=== PATIENT | male | born 1990 | race Caucasian/White ===

== ENCOUNTER 2021-10-29 13:11 | Emergency (ER) | payer OTHER ==
[~2021-10-29] VITALS: Ht 172.7 cm; Wt 77.3 kg
[2021-10-29 13:12] VITALS: BP 120/78
[2021-10-29 14:05] LABS: RSV AMPLIFICATION NEGATIVE (NEGATIVE)
[2021-10-29] MEDS ORDERED: ONDA4TAB6 PO (14:32)
== END 2021-10-29 14:45 | disposition home or self-care (01) ==
LOC: M ED 13:11
DX: U07.1 COVID-19 (principal); R50.9 Fever, unspecified; R06.02 Shortness of breath; R07.9 Chest pain, unspecified; F17.200 Nicotine dependence, unspecified, uncomplicated

== ENCOUNTER 2023-08-29 09:20 | Emergency (ER) | payer OTHER ==
[~2023-08-29] VITALS: Ht 172.7 cm; Wt 79.8 kg
[~2023-08-29 09:20] MED LIST: ONDA4TAB6 PO
[2023-08-29] MEDS ORDERED: TRAZ-252 (09:30)
[2023-08-29] MEDS ORDERED: ISOVUE-370 76% 100ML VIAL As Ordered ONE (10:07)
[2023-08-29] MEDS: NS 1,000 ML IV ONE (10:09)
[2023-08-29] MEDS: ACETAMINOPHEN *IV* 1,000 MG in IV 1 EA IV ONE (10:09)
[2023-08-29 10:11] LABS: BASO % 0.3 % (0.0-1.0); EOS # 0.1 10^3/uL (0.0-0.5); EOS % 1.9 % (0.0-3.0); HEMATOCRIT 44.9 % (42.0-52.0); HEMOGLOBIN 15.6 g/dl (13.5-17.5); LYMPH # 2.3 10^3/uL (1.5-5.0); LYMPH % 31.8 % (24.0-44.0); MEAN CORPUSCULAR HEMOGLOBIN 30.6 pg (27.0-33.0); MEAN CORPUSCULAR HGB CONC 34.7 g/dl (32.0-36.5); MEAN CORPUSCULAR VOLUME 88.2 fl (80.0-96.0); MONO # 0.4 10^3/uL (0.0-0.8); MONO % 5.6 % (2.0-8.0); NEUTROPHILS # 4.3 10^3/uL (1.5-8.5); NEUTROPHILS % 60.1 % (36.0-66.0); PLATELET COUNT, AUTOMATED 177 10^3/uL (150-450); RED BLOOD COUNT 5.09 10^6/uL (4.30-6.10); WHITE BLOOD COUNT 7.2 10^3/uL (4.0-10.0)
[2023-08-29 10:33] LABS: LIPASE 37 U/L (12-53)
[2023-08-29 10:34] LABS: C REACTIVE PROTEIN QUANTITATIV < 0.40 MG/DL (<1.0)
[2023-08-29 10:35] LABS: ALBUMIN 4.1 G/DL (3.2-5.2); ALKALINE PHOSPHATASE 76 U/L (46-116); ALT/SGPT 53 U/L (7.0-40); AST/SGOT 19 U/L (<34); BILIRUBIN,DIRECT 0.2 MG/DL (<0.4); BILIRUBIN,TOTAL 0.7 MG/DL (0.3-1.2); BLOOD UREA NITROGEN 15 MG/DL (9-23); CALCIUM LEVEL 9.1 MG/DL (8.5-10.1); CARBON DIOXIDE LEVEL 26 MMOL/L (20-31); CHLORIDE LEVEL 107 MMOL/L (98-107); CREATININE FOR GFR 1.05 MG/DL (0.70-1.30); GLOMERULAR FILTRATION RATE > 60.0 (>60); GLUCOSE, FASTING 105 MG/DL (60-100); POTASSIUM SERUM 3.9 MMOL/L (3.5-5.1); SODIUM LEVEL 139 MMOL/L (136-145); TOTAL PROTEIN 6.7 G/DL (5.7-8.2)
[2023-08-29] MEDS: KETOROLAC 30 MG/ML 1ML VIAL IV ONE (12:31)
[2023-08-29 13:58] VITALS: BP 120/68; TEMP 97.1; O2SAT 98
== END 2023-08-29 14:29 | disposition home or self-care (01) ==
LOC: M ED 09:20
DX: K59.00 Constipation, unspecified (principal); Z87.891 Personal history of nicotine dependence; F10.10 Alcohol abuse, uncomplicated; Z91.013 Allergy to seafood; Z79.899 Other long term (current) drug therapy
CPT/HCPCS: 74177; 80048; 80076; 83690; 85025; 86140; 96365; 96366; 96374; 99284; J0131; J1885; Q9967

== ENCOUNTER 2023-09-05 03:56 | Emergency (ER) | payer OTHER ==
[~2023-09-05] VITALS: Ht 172.7 cm; Wt 80.8 kg
[~2023-09-05 03:56] MED LIST changes: +TRAZ-252
[2023-09-05 04:41] LABS: BASO % 0.4 % (0.0-1.0); EOS # 0.2 10^3/uL (0.0-0.5); EOS % 2.1 % (0.0-3.0); HEMATOCRIT 43.7 % (42.0-52.0); HEMOGLOBIN 14.8 g/dl (13.5-17.5); LYMPH # 3.6 10^3/uL (1.5-5.0); LYMPH % 38.1 % (24.0-44.0); MEAN CORPUSCULAR HEMOGLOBIN 30.1 pg (27.0-33.0); MEAN CORPUSCULAR HGB CONC 33.9 g/dl (32.0-36.5); MEAN CORPUSCULAR VOLUME 88.8 fl (80.0-96.0); MONO # 0.8 10^3/uL (0.0-0.8); MONO % 8.2 % (2.0-8.0); NEUTROPHILS # 4.7 10^3/uL (1.5-8.5); NEUTROPHILS % 50.9 % (36.0-66.0); PLATELET COUNT, AUTOMATED 195 10^3/uL (150-450); RED BLOOD COUNT 4.92 10^6/uL (4.30-6.10); WHITE BLOOD COUNT 9.3 10^3/uL (4.0-10.0)
[2023-09-05 05:04] LABS: LIPASE 105 U/L (12-53)
[2023-09-05 05:06] LABS: ALBUMIN 3.9 G/DL (3.2-5.2); ALKALINE PHOSPHATASE 73 U/L (46-116); ALT/SGPT 59 U/L (7.0-40); AST/SGOT 19 U/L (<34); BILIRUBIN,DIRECT 0.1 MG/DL (<0.4); BILIRUBIN,TOTAL 0.4 MG/DL (0.3-1.2); BLOOD UREA NITROGEN 20 MG/DL (9-23); CALCIUM LEVEL 8.9 MG/DL (8.5-10.1); CARBON DIOXIDE LEVEL 25 MMOL/L (20-31); CHLORIDE LEVEL 111 MMOL/L (98-107); CREATININE FOR GFR 0.99 MG/DL (0.70-1.30); GLOMERULAR FILTRATION RATE > 60.0 (>60); GLUCOSE, FASTING 93 MG/DL (60-100); POTASSIUM SERUM 4.2 MMOL/L (3.5-5.1); SODIUM LEVEL 141 MMOL/L (136-145); TOTAL PROTEIN 6.6 G/DL (5.7-8.2)
[2023-09-05] MEDS: KETOROLAC 30 MG/ML 1ML VIAL IV ONE (06:33)
[2023-09-05] MEDS: NS 1,000 ML IV ONE (06:33)
[2023-09-05] MEDS ORDERED: MIRA3350 PO (07:41)
[2023-09-05] MEDS ORDERED: FLOM0.4C39 PO (07:41)
[2023-09-05] MEDS ORDERED: KETO10TAB PO (07:41)
[2023-09-05 07:52] VITALS: BP 117/56; TEMP 97.3; O2SAT 99
== END 2023-09-05 08:01 | disposition home or self-care (01) ==
LOC: M ED 03:56
DX: K59.00 Constipation, unspecified (principal); N20.1 Calculus of ureter; F10.10 Alcohol abuse, uncomplicated; Z88.8 Allergy status to other drugs, medicaments and biological substances; Z91.013 Allergy to seafood; Z79.899 Other long term (current) drug therapy
CPT/HCPCS: 74176; 80053; 81001; 82248; 83690; 85025; 96361; 96374; 99284; J1885

== ENCOUNTER → 2023-09-10 | Outpatient (REF) | payer OTHER ==
[~2023-09-10] MED LIST changes: +FLOM0.4C39 PO; +KETO10TAB PO; +MIRA3350 PO; +ONDA-282 PO; -ONDA4TAB6 PO
[2023-09-10 12:46] LABS: APPEARANCE, URINE CLEAR (CLEAR); BACTERIA, URINE AUTO NEGATIVE (NEGATIVE); BILIRUBIN, URINE AUTO NEGATIVE (NEGATIVE); BLOOD, URINE BLOOD 2+ (NEGATIVE); COLOR, URINE YELLOW (YELLOW); GLUCOSE, URINE (UA) AUTO NEGATIVE (NEGATIVE); KETONE, URINE AUTO NEGATIVE (NEGATIVE); LEUKOCYTE ESTERASE, URINE AUTO NEGATIVE (NEGATIVE); MUCUS, URINE SMALL (NEGATIVE); NITRITE, URINE AUTO NEGATIVE (NEGATIVE); PROTEIN, URINE AUTO NEGATIVE (NEGATIVE); RBC, URINE AUTO 5 /HPF (0-3); SPECIFIC GRAVITY URINE AUTO 1.023 (1.002-1.035); SQUAMOUS EPITHELIAL CELL UR AU 0 /HPF (0-6); UROBILINOGEN, URINE AUTO 0.2 mg/dL (0.0-2.0); WBC, URINE AUTO 0 /HPF (0-3)
== END ==
LOC: M SMT 12:22
PROVIDERS: ATTEND Specialist
DX: N20.1 Calculus of ureter (principal)